=== PATIENT | male | born 1945 | race Caucasian/White ===

== ENCOUNTER 2025-04-25 09:00 | Observation (INO) | payer MEDICARE, BC ==
[2025-04-25 09:46] LABS: #Basophils 0.03 10x3/uL (0.0-0.2); #Eosinophils 0.14 10x3/uL (0.0-0.5); #Monocytes 0.44 10x3/uL (0.0-1.1); #Neutrophils 5.04 10x3/uL (1.5-8.4); %Basophils 0.4 % (0.0-2.0); %Eosinophils 1.7 % (0.0-6.0); %Lymphocytes 30.3 % (18.0-47.0); %Monocytes 5.4 % (0.0-10.0); %Neutrophils 61.7 % (40.0-75.0); Hematocrit 35.6 % (38.8-50.0); Hemoglobin 12.0 g/dL (13.5-17.5); Mean Corpuscular Hemoglobin 29.8 pg (27.0-33.0); Mean Corpuscular Volume 88.3 fL (81.2-95.1); Platelet Count 199 10x3/uL (150-450); Red Blood Cell (RBC) Count 4.03 10x6/uL (4.32-5.72); White Blood Cell (WBC) Count 8.16 10x3/uL (3.5-10.5)
[2025-04-25 09:54] LABS: ALT (SGPT) 25 U/L (Less than 45); AST (SGOT) 28 U/L (11-34); Albumin 3.6 g/dL (3.1-4.5); Alkaline Phosphatase 48 U/L (40-110); Anion Gap 11 mmol/L (10-20); BUN (Urea Nitrogen) 15 mg/dL (8.4-25.7); Bilirubin, Total 0.7 mg/dL (0.3-1.2); CK (CPK) 43 U/L (30-200); Calc. Creatinine Clearance 0 mL/min (70-130); Calcium 9.0 mg/dL (7.8-10.44); Carbon Dioxide 27 mmol/L (23-31); Chloride 108 mmol/L (98-107); Globulin 2.7 g/dL (2.4-3.5); Glucose 92 mg/dL (83-110); Magnesium 2.0 mg/dL (1.6-2.6); Potassium 3.6 mmol/L (3.5-5.1); Sodium 142 mmol/L (136-145)
[2025-04-25] MEDS ORDERED: Calcium Carbonate 500 MG ChewTAB PO PRN (13:42)
[2025-04-25] MEDS ORDERED: Ondansetron PF 4 MG/2 ML Vial IVP PRN (13:42)
[2025-04-25] MEDS ORDERED: Acetaminophen 325 MG TAB PO PRN (13:42)
[2025-04-25] MEDS ORDERED: Senokot S 8.6-50 MG TAB PO PRN (13:42)
[2025-04-25] MEDS ORDERED: Electrolyte Replacement Protocol 1 EACH FS SCH (13:45)
[2025-04-25 13:51] LABS: Troponin I Less than 0.010 ng/mL (< 0.028)
[2025-04-25] MEDS ORDERED: Iopamidol 370 76% 100 ML VIAL ONE (14:00)
[2025-04-25] MEDS ORDERED: Potassium Chloride 20 MEQ in Premix 1 BAG IVPB PRN (14:00)
[2025-04-25] MEDS ORDERED: PHOS-NAK 1 PKT PACK PO PRN (14:00)
[2025-04-25 14:24] LABS: Troponin I Less than 0.010 ng/mL (< 0.028)
[2025-04-25 14:37] VITALS: BMI 21.7
[2025-04-25] MEDS: Magnesium 2 GM/50 ML(in water) 2 GM in Premix 1 BAG IVPB PRN (16:52)
[2025-04-26 04:16] LABS: #Basophils 0.03 10x3/uL (0.0-0.2); #Eosinophils 0.06 10x3/uL (0.0-0.5); #Monocytes 0.37 10x3/uL (0.0-1.1); #Neutrophils 5.15 10x3/uL (1.5-8.4); %Basophils 0.4 % (0.0-2.0); %Eosinophils 0.8 % (0.0-6.0); %Lymphocytes 22.0 % (18.0-47.0); %Monocytes 5.1 % (0.0-10.0); %Neutrophils 71.1 % (40.0-75.0); Hematocrit 33.4 % (38.8-50.0); Hemoglobin 11.2 g/dL (13.5-17.5); Mean Corpuscular Hemoglobin 29.6 pg (27.0-33.0); Mean Corpuscular Volume 88.4 fL (81.2-95.1); Platelet Count 197 10x3/uL (150-450); Red Blood Cell (RBC) Count 3.78 10x6/uL (4.32-5.72); White Blood Cell (WBC) Count 7.24 10x3/uL (3.5-10.5)
[2025-04-26 04:25] LABS: Anion Gap 12 mmol/L (10-20); BUN (Urea Nitrogen) 12 mg/dL (8.4-25.7); Calc. Creatinine Clearance 89 mL/min (70-130); Calcium 8.6 mg/dL (7.8-10.44); Carbon Dioxide 25 mmol/L (23-31); Chloride 110 mmol/L (98-107); Glucose 89 mg/dL (83-110); Magnesium 2.2 mg/dL (1.6-2.6); Potassium 4.6 mmol/L (3.5-5.1); Sodium 142 mmol/L (136-145)
[2025-04-26] MEDS: FLU (Fluad Triv) 25-26 (65UP)PF 45 MCG/0.5 ML Syringe IM ONE (08:01)
[2025-04-26 08:17] VITALS: BP 107/65; TEMP 98.5
[2025-04-26] MEDS: Enoxaparin 40 MG (0.4 mL) SYRINGE SC SCH (08:37)
[2025-04-26] MEDS: Aspirin 81 mg Enteric Coated Tablet PO SCH (08:38)
[2025-04-26 12:12] VITALS: BMI 21.7
== END 2025-04-26 11:40 | disposition home or self-care (01) ==
LOC: CSHERS 09:00 → CSHERHOLD 12:41 → CSHTELE 14:22
PROVIDERS: ADMIT Family Medicine; ATTEND Internal Medicine
DX: R55 Syncope and collapse (principal); E78.5 Hyperlipidemia, unspecified; I10 Essential (primary) hypertension; D64.9 Anemia, unspecified; R00.1 Bradycardia, unspecified; Z88.5 Allergy status to narcotic agent; Z79.82 Long term (current) use of aspirin; Z79.899 Other long term (current) drug therapy
CPT/HCPCS: 70450; 70553; 71275; 76376; 80048; 82550; 83036; 83605; 83735 ×2; 84100; 84146; 84484 ×2; 85025; 85379; 93306; 94762; 96360; 99285; J1650; J3475; J3480; J7120; 36415; 80053; 84443; 93005; 93010; 96361; 96372; 96374; 96375; G0378; Q9967